=== PATIENT | male | born 1995 | race Caucasian/White ===

== ENCOUNTER 2020-04-27 08:10 | Emergency (ER) | payer MEDICAID ==
[~2020-04-27] VITALS: Ht 175.3 cm; Wt 88.5 kg
[2020-04-27 08:23] VITALS: BP 114/86
[2020-04-27] MEDS ORDERED: methylPREDNISolone SS 125 MG in WATER STERILE 2 ML IM ONE (08:55)
[2020-04-27] MEDS ORDERED: FAMOTIDINE 20 MG TAB PO ONE (08:55)
[2020-04-27] MEDS ORDERED: methylPREDNISolone SS 125 MG/2 ML VIAL ONE (08:57)
[2020-04-27] MEDS ORDERED: WATER STERILE 10 ML MC ONE (08:57)
--- NOTE | 2020-04-27 10:15 | NUR ---
Patient discharged with v/s stable. Written and verbal after care instructions given and explained. Patient alert, oriented and verbalized understanding of instructions. Ambulatory with steady gait. All questions addressed prior to discharge. ID band removed. Patient advised to follow up with PMD. Rx of Pepcid 20mg, Prednisone 20mg, and Diphyenhydramine 25mg given. Patient educated on indication of medication including possible reaction and side effects. Opportunity to ask questions provided and answered.
--- NOTE | 2020-04-27 10:15 | NUR ---
PT C/O ALLERGIC REACTION WITH SWOLLEN LIPS AND TONGUE, GENERALIZED BODY RASH WITH ITCHINESS AND BURNING SENSATION. DENIES SOB. TOOK BENADRYL AROUND 1AM THIS MORNING
[2020-04-27 10:16] VITALS: BP 114/86
== END 2020-04-27 10:15 | disposition home or self-care (01) ==
LOC: MED 08:10
DX: L50.0 Allergic urticaria (principal)
CPT/HCPCS: 96372; 99283; J2930

== ENCOUNTER 2020-04-28 22:33 | Emergency (ER) | payer MEDICAID ==
[~2020-04-28] VITALS: Ht 175.3 cm; Wt 86.2 kg
[2020-04-28 22:45] VITALS: BP 139/67
--- NOTE | 2020-04-28 22:48 | NUR ---
TO LOBBY A/W BED AMBULATORY
--- NOTE | 2020-04-29 03:17 | NUR ---
PATIENT LEFT WITHOUT BEING SEEN BY DR. HUERTA. NO FURTHER CARE PROVIDED FOR PATIENT.
== END 2020-04-29 03:02 | disposition home or self-care (01) ==
LOC: MED 22:33
DX: R21 Rash and other nonspecific skin eruption (principal); Z53.21 Procedure and treatment not carried out due to patient leaving prior to being seen by health care provider

== ENCOUNTER 2021-04-26 01:17 | Emergency (ER) | payer SELFPAY ==
[~2021-04-26] VITALS: Ht 175.3 cm; Wt 90.7 kg
[2021-04-26 01:21] VITALS: BP 139/79
--- NOTE | 2021-04-26 01:25 | NUR ---
PT AMBULATED TO BED 4
--- NOTE | 2021-04-26 01:26 | NUR ---
Gen oconnell in [facility] - 04/26/21 at 0126 by DAMARI PT TAKEN TO BED 4
--- NOTE | 2021-04-26 01:40 | NUR ---
PT C/O NAUSEA AND DIZZINESS X 2 HRS WHILE AT WORK, PT ALSO STATES EARLIER HE HAD A TOOTHACHE IN WHICH HE TOOK IBUPROFEN. DENIES HEADACHE AND VOMITTING. MEDICAL HX: DENIES MEDICATIONS: DENIES NKA
[2021-04-26] MEDS: ONDANSETRON 4 MG ODT PO ONE (01:42)
--- NOTE | 2021-04-26 02:01 | NUR ---
Dr. Cabral examining patient.
[2021-04-26] MEDS: KETOROLAC 60 MG/2 ML VIAL IM ONE (02:10)
[2021-04-26] MEDS ORDERED: ONDA8TAB87 PO (02:12)
[2021-04-26] MEDS ORDERED: IBUP-2213 PO (02:12)
[2021-04-26 02:30] VITALS: BP 139/79
--- NOTE | 2021-04-26 02:30 | NUR ---
Patient discharged with v/s stable. Written and verbal after care instructions given and explained. Patient alert, oriented and verbalized understanding of instructions. Ambulatory with steady gait. All questions addressed prior to discharge. ID band removed. Patient advised to follow up with PMD. Rx of IBUPROFEN AND ZOFRAN given. Patient educated on indication of medication including possible reaction and side effects. Opportunity to ask questions provided and answered.
--- NOTE | 2021-04-26 02:36 | NUR ---
The patient's care was reviewed and supervised by RODOLFO MUNIZ RN.
== END 2021-04-26 02:30 | disposition home or self-care (01) ==
LOC: MED 01:17
DX: R10.13 Epigastric pain (principal); R11.2 Nausea with vomiting, unspecified; R42 Dizziness and giddiness; F17.200 Nicotine dependence, unspecified, uncomplicated
CPT/HCPCS: 96372; 99283; J1885; Q0162